=== PATIENT | male | born 1975 | race Two or more races ===

== ENCOUNTER 2025-06-03 06:58 | Day surgery (SDC) | payer BC, SELFPAY ==
[2025-06-03] VITALS (9 sets, daily range): BP systolic 125–169; BP diastolic 76–116; PULSE 64–116; RESP 14–22; TEMP 36.6–36.9; O2SAT 94–99; BMI 31.1
[2025-06-03] MEDS: SIMETHICONE 40 MG/0.6 ML ORAL SYRINGE PO (07:49)
[2025-06-03] MEDS: MIDAZOLAM INJ 1 MG/ML VIAL 2 ML (ASD USE ONLY) 2 MG IVP (07:57)
[2025-06-03] MEDS: fentaNYL CIT INJ 50 mCg/ML AMP 2ML (ASD USE ONLY) IVP (07:58)
[2025-06-03] MEDS: SODIUM CHLORIDE 0.9% 500 ML 500 ML 20 ML IV (07:59)
== END 2025-06-03 08:45 | disposition home or self-care (01) ==
PROVIDERS: PCP Family Medicine; Referring Provider Surgery; Visit Provider Surgery
PROC: 0DBE8ZX Excision of Large Intestine, Via Natural or Artificial Opening Endoscopic, Diagnostic (ICD-10-PCS; CPT 45380; principal; 2025-06-03 08:00)
DX: K62.5 Hemorrhage of anus and rectum (principal); K64.1 Second degree hemorrhoids; K57.30 Diverticulosis of large intestine without perforation or abscess without bleeding
CPT/HCPCS: 45378; A4649; J1200; J2250; J3010; J7999; A9270